=== PATIENT | female | born 1975 | race Two or more races ===

== ENCOUNTER 2023-01-01 00:01 | Emergency (ER) | payer SELFPAY ==
[~2023-01-01] VITALS: Ht 152.4 cm; Wt 45.4 kg
--- NOTE | 2023-01-01 01:00 | NUR ---
Patient walked to ER with steady gait, NAD noted
[2023-01-01] MEDS ORDERED: NAPR-1192 PO (02:22)
--- NOTE | 2023-01-01 02:35 | NUR ---
Patient discharged to home in stable condition. Written and verbal after care instructions given. Patient verbalizes understanding of instructions. Stressed follow up or return to ER for worsening s/s. Patient is a/ox4, NAD noted. patient ambulated with steady gait
[2023-01-01 02:36] VITALS: BP 128/78
== END 2023-01-01 02:49 | disposition home or self-care (01) ==
LOC: ER 00:18
DX: F07.81 Postconcussional syndrome (principal); R51.9 Headache, unspecified; F17.210 Nicotine dependence, cigarettes, uncomplicated; Z79.899 Other long term (current) drug therapy
CPT/HCPCS: 70450; A4663